=== PATIENT | male | born 1975 | race Caucasian/White ===

== ENCOUNTER 2016-12-08 08:29 | Emergency (ER) | payer OTHER ==
[2016-12-08 08:37] VITALS: BP 144/89; PULSE 75; TEMP 97.9; BMI 29.7
[2016-12-08] MEDS ORDERED: IBUPROFEN 600 MG TABLET (FP) PO ONE (09:51)
--- NOTE | 2016-12-08 09:57 | PDOC ---
History of Present Illness - General Chief Complaint: Injury Stated Complaint: ANKLE PAIN Time Seen by Provider: 12/08/16 09:01 History Source: Patient Exam Limitations: No Limitations - History of Present Illness Initial Comments: 12/08/16 09:52 While on duty, [employer], slipped/tripped and struck a heavy piece of tiling causing a hyper flexion injury of his left foot. Patient complaints of pain and swelling Occurred: reports: this morning Severity: reports: mild, moderate Pain Location: reports: lower extremity (left foot) Method of Injury: Yes: direct blow Associated Symptoms (Fall): denies symptoms Past History - Travel Traveled outside of the country in the last 30 days: No Close contact w/someone who was outside of country & ill: No - Past Medical History Allergies/Adverse Reactions: Allergies Allergy/AdvReac Type Severity Reaction Status Date / Time Penicillins Allergy Mild Itching Verified 12/08/16 08:38 Home Medications: Ambulatory Orders Aspirin [Ecotrin] 81 mg PO DAILY #0 tablet. 08/14/11 Lisinopril [Prinivil] 20 mg PO BID #0 tablet 08/14/11 Omeprazole [Prilosec (RX)] 20 mg PO DAILY 08/01/13 Rosuvastatin Calcium [Crestor] 10 mg PO DAILY 08/01/13 Ibuprofen [Motrin -] 800 mg PO TID #30 tablet 10/03/13 HTN: Yes Hypercholesterolemia: Yes Suicide Attempt (Hx): No - Immunization History Immunization Up to Date: Yes - Psycho/Social/Smoking Cessation Hx Anxiety: No Suicidal Ideation: No Smoking Status: No Smoking History: Never smoked Years of Tobacco Use: 0 Number of Cigarettes Smoked Daily: 0 Information on smoking cessation initiated: No Hx Alcohol Use: No Drug/Substance Use Hx: No Substance Use Type: None Review of Systems - Review of Systems Able to Perform ROS?: Yes Is the patient limited Latvian proficient: Yes Constitutional: Yes: See HPI. No: Symptoms Reported Musculoskeletal: Yes: Symptoms Reported, See HPI, Joint Pain, Joint Swelling Integumentary: Yes: Symptoms Reported, See HPI, Bruising All Other Systems: Reviewed and Negative *Physical Exam - Vital Signs Last Vital Signs Temp Pulse Resp BP Pulse Ox 97.9 F 75 17 144/89 98 12/08/16 08:36 12/08/16 08:36 12/08/16 08:36 12/08/16 08:36 12/08/16 08:36 - Physical Exam General Appearance: Yes: Nourished, Appropriately Dressed, Apparent Distress, Mild Distress HEENT: positive: FANNY, Normal ENT Inspection, TMs Normal, Pharynx Normal Neck: positive: Supple Gastrointestinal/Abdominal: positive: Soft Extremity: positive: Normal Capillary Refill, Tender. negative: Normal Inspection, Normal Range of Motion Integumentary: positive: Dry, Warm, Ecchymosis, Bruising (and swelling to lateral toes 345 extending into mid foot. Has point tenderness at metatarsals of 4 and 5, able to flex and extend toes but is painful. Neurovascular intact to distal digits. No medial or lateral malleoli tenderness, range of motion ankles intact.). 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 NML intact, Fully Oriented, Alert, Normal Mood/ Affect, Normal Response, Motor Strength 5/5 Procedures - Splinting Splint Location: Left: Foot (castshoe) ED Treatment Course - RADIOLOGY Radiology Studies Ordered: Category Date Time Status ANKLE & FOOT-LEFT* [RAD] Stat Radiology 12/08/16 08:57 Taken Progress Note - Progress Note Progress Note: Foot and ankle sprain, Juice and cast shoe provided, patient will be out until layered by department *DC/Admit/Observation/Transfer Diagnosis at time of Disposition: Toe sprain Qualifiers: Encounter type: initial encounter Qualified Code(s): S93.509A - Unspecified sprain of unspecified toe(s), initial encounter Sprain of left ankle Qualifiers: Encounter type: initial encounter Involved ligament of ankle: unspecified ligament Qualified Code(s): S93.402A - Sprain of unspecified ligament of left ankle, initial encounter - Discharge Dispostion Disposition: HOME Condition at time of disposition: Stable Admit: No - Referrals Referrals: Zachary Samayoa MD [Staff Physician] - - Patient Instructions Printed Discharge Instructions: DI for Foot Sprain Additional Instructions: Rest, ice to area on and off for 15 minutes 4-6 times a day Avoid heavy lifting or exercise until pain and swelling is resolved or until further directed Keep area highly elevated to reduce swelling Use splints/Juice wrap as directed Followup with orthopedist in one to 2 days if not improving, if significantly improved may wait one week for followup with orthopedist May use ibuprofen 2-200 mg tablets every 6 hours as needed for pain - Post Discharge Activity Work/School Note: Back to Work
== END 2016-12-08 10:09 | disposition home or self-care (01) ==
LOC: JERFT 08:29
DX: S93.622A Sprain of tarsometatarsal ligament of left foot, initial encounter (principal); S93.492A Sprain of other ligament of left ankle, initial encounter; W01.198A Fall on same level from slipping, tripping and stumbling with subsequent striking against other object, initial encounter; Y93.89 Activity, other specified; Y92.89 Other specified places as the place of occurrence of the external cause; Y99.0 Civilian activity done for income or pay; I10 Essential (primary) hypertension; E78.00 Pure hypercholesterolemia, unspecified
CPT/HCPCS: 73610-TC-LT; 73630-TC-LT; 99281-25

== ENCOUNTER 2021-05-14 17:19 | Emergency (ER) | payer BC ==
[2021-05-14 17:47] VITALS: TEMP 100; BMI 27.0
[2021-05-14] MEDS ORDERED: guaiFENesin/CODEINE 10 ML UNIT-DOSE CUPS PO ONE (17:58)
[2021-05-14] MEDS ORDERED: ACETAMINOPHEN 500 MG TABLET (FP) PO ONE (17:58)
[2021-05-14] MEDS ORDERED: ACETAMINOPHEN 500 MG TABLET (FP) ONE (17:59)
[2021-05-14] MEDS ORDERED: guaiFENesin/CODEINE 5 ML UNIT-DOSE CUPS PO ONE (18:00)
[2021-05-14] MEDS ORDERED: CASIRIVIMAB/IMDEVIMAB 10 ML in SODIUM CHLORIDE 100 ML IVPB ONE (19:21)
[2021-05-14 19:48] LABS: HEMATOCRIT 38.7 % (35.4-49); HEMOGLOBIN 12.8 GM/dL (11.7-16.9); MCH 20.5 pg (25.7-33.7); MCHC 32.9 g/dl (32.0-35.9); MEAN CELL VOLUME 62.3 fl (80-96); MEAN PLT VOLUME 8.7 fl (7.5-11.1); PLATELET COUNT 171 10^3/uL (134-434); RBC 6.22 M/mm3 (4.00-5.60); RDW 15.2 % (11.9-15.9); WHITE BLOOD COUNT 5.9 K/mm3 (4.0-10.0)
[2021-05-14 20:17] LABS: ALBUMIN 3.7 g/dl (3.4-5.0); BLOOD UREA NITROGEN 8.1 mg/dL (7-18); CALCIUM 8.4 mg/dL (8.5-10.1)
[2021-05-14 20:22] LABS: BILIRUBIN,TOTAL 0.8 mg/dL (0.2-1); TOT PROT 7.5 g/dl (6.4-8.2)
[2021-05-14 21:35] VITALS: BP 96/61; PULSE 100
== END 2021-05-14 21:54 | disposition home or self-care (01) ==
LOC: JER 17:19
DX: J06.9 Acute upper respiratory infection, unspecified (principal); R05.9 Cough, unspecified; U07.1 COVID-19
CPT/HCPCS: 36415; 71046-TC-FY; 80053; 85027; 99284-25; Q0240